=== PATIENT | female | born 1955 | race Hispanic/Latino ===

== ENCOUNTER 2017-07-25 16:16 | Outpatient (CLI) | payer OTHER | END 2017-07-25 16:17 | disposition home or self-care (01) | LOC: LABBT 16:16 | PROVIDERS: ATTEND Orthopaedic Surgery | DX: Z01.812 Encounter for preprocedural laboratory examination (principal); Z01.810 Encounter for preprocedural cardiovascular examination; S83.206A Unspecified tear of unspecified meniscus, current injury, right knee, initial encounter | CPT/HCPCS: 93005; 93010 ==

== ENCOUNTER 2017-07-27 07:31 | Day surgery (SDC) | payer OTHER ==
[2017-07-25 16:21] VITALS: BMI 27.4
[2017-07-27] MEDS ORDERED: Diprivan 20 ML ONE (07:45)
[2017-07-27] MEDS ORDERED: CEFAZOLIN/Water 2 GM/20 ML SYRINGE ONE (07:49)
[2017-07-27] MEDS ORDERED: Midazolam HCl 2 mg/2 ml Vial ONE (08:40)
[2017-07-27] MEDS ORDERED: Bupivacaine HCl 0.5%/Epinephrine 1:200,000/PF 30 ml Vial ONE (09:36)
--- NOTE | 2017-07-27 12:21 | OP ---
DATE OF PROCEDURE: 07/27/2017 PREOPERATIVE DIAGNOSIS: Right knee lateral meniscal tear. POSTOPERATIVE DIAGNOSES: 1. Right knee grade 3 and 4 lesion on the medial femoral condyle with a small stable chondral flap. 2. Posterior horn medial meniscus tear. 3. Complex tear of the lateral meniscus involving the entire anterior horn and body and going into t he posterior horn of the lateral meniscus including a large displaced flap fragments and horizontal c leavage component mostly of the anterior horn of the meniscus. ANESTHESIA: She did have general anesthetic. She had a local knee block. DISPOSITION: She did go to recovery room in stable condition. COMPLICATIONS: There were no complications. PROCEDURES: 1. Knee arthroscopy, partial medial and lateral meniscectomies. 2. Debridement of unstable cartilage flap, medial femoral condyle. INDICATIONS: Linda is a lady who works over here at [employer] and 62 years old. She comes in [facility] plaining of occasional pain, locking and swelling in the knee. We tried nonoperative treatment inclu ding an injection and this has failed to give her relief, she wished for. DESCRIPTION OF PROCEDURE: After all appropriate consent forms were explained and signed, she was ubaldo en to the operating room and at this time was given general anesthetic. Once anesthesia was appropri ate, the tourniquet was placed on the right thigh and leg was then placed in an arthroscopic leg hold er. It was then prepped and draped in standard surgical fashion. Limb was exsanguinated, tourniquet taken up to 250 mmHg. An inferolateral portal was established and the scope was placed into the kne e joint. A needle localization technique was then used to make a medial working portal. Diagnostic arthroscopy commenced in the notch, the ACL and PCL probed and found to be intact. There was a large displaced fragment locked into the notch next to the ACL. This was coming off the anterior horn. W e first turned our attention to the medial compartment. There was a 3-4 mm wide by almost 2 cm long injury to the medial femoral condyle with some unstable chondral flaps, this was taken back to a stab le base. Essentially, there was a grade 4 lesion, but perhaps maybe a little bit of [place] cartilage still left on this. Other than this, this was left alone. Medial compartment was then evaluated. Tibia was in good condition. There was a posterior horn tear of the medial meniscus and a partial me niscectomy was performed using meniscal biter and shaver, leaving as much meniscus as possible. The lateral compartment was then evaluated, this locked piece of a flap tissue was removed using a biter and shaver. They were able to fully evaluate the lateral compartment and a very complex tear. The e ntire anterior horn of the lateral meniscus as split into 2 levels and both of these had tears and es sentially making the anterior horn nonfunctional and not irreparable either. Therefore, a slowly bit ing and shaving, we removed the unstable flaps and I left as much remaining meniscus as possible. Ho wever, this is essentially removing nearly the entire anterior horn of the lateral meniscus, a 50% po rtion of the body and maybe 30% going into the posterior horn of the lateral meniscus. Once all thes e flaps and loose tissue had been removed, there was a stable meniscal cartilage left upon probing an d no longer locked into the knee joint. The knee could then be taken through full range of motion. Gutters were swept through and no loose bodies noted in the patellofemoral joint overall was in good condition. At this time, the scope was removed, the knee was drained, and portals were closed with s imple nylon stitch. Bulky sterile dressing was applied and the tourniquet let down. Toes pinked up nicely. The patient was then awakened. She was taken to the recovery room in stable condition. All counts were correct at the end of the case. She did receive preoperative IV antibiotics.
== END 2017-07-27 15:01 | disposition home or self-care (01) ==
LOC: SDC 07:31
PROVIDERS: ATTEND Orthopaedic Surgery
PROC: 0SBC4ZZ Excision of Right Knee Joint, Percutaneous Endoscopic Approach (ICD-10-PCS; principal; 2017-07-27)
DX: S83.271A Complex tear of lateral meniscus, current injury, right knee, initial encounter (principal); S83.241A Other tear of medial meniscus, current injury, right knee, initial encounter
CPT/HCPCS: G8978-GP-CI; G8979-GP-CI; G8980-GP-CI; J0670; J2250; J2704

== ENCOUNTER 2018-06-24 15:57 | Outpatient (CLI) | payer OTHER | END 2018-06-24 15:58 | disposition home or self-care (01) | LOC: BICMAMMO 15:57 | PROVIDERS: ATTEND Family Medicine | DX: Z12.31 Encounter for screening mammogram for malignant neoplasm of breast (principal) | CPT/HCPCS: 77063; 77067 ==

== ENCOUNTER 2020-09-14 15:16 | Outpatient (CLI) | payer OTHER | END 2020-09-14 15:17 | disposition home or self-care (01) | LOC: BICMAMMO 15:16 | PROVIDERS: ATTEND Student in an Organized Health Care Education/Training Program | DX: Z12.31 Encounter for screening mammogram for malignant neoplasm of breast (principal) | CPT/HCPCS: 77063; 77067 ==

== ENCOUNTER 2021-12-14 14:24 | Outpatient (CLI) | payer BC | END 2021-12-14 14:25 | disposition home or self-care (01) | LOC: BICMAMMO 14:24 | PROVIDERS: ATTEND Student in an Organized Health Care Education/Training Program | DX: Z12.31 Encounter for screening mammogram for malignant neoplasm of breast (principal) | CPT/HCPCS: 77063; 77067 ==

== ENCOUNTER 2022-06-09 19:00 | Outpatient (CLI) | payer BC | END 2022-06-09 19:01 | disposition home or self-care (01) | LOC: SLEEPLAB 19:00 | PROVIDERS: ATTEND Student in an Organized Health Care Education/Training Program | DX: G47.9 Sleep disorder, unspecified (principal); R06.81 Apnea, not elsewhere classified; R53.83 Other fatigue; F32.A Depression, unspecified; R06.83 Snoring; G47.61 Periodic limb movement disorder; G47.10 Hypersomnia, unspecified | CPT/HCPCS: 95810 ==

== ENCOUNTER 2023-03-08 07:22 | Outpatient (CLI) | payer BC, MEDICARE | END 2023-03-08 07:23 | disposition home or self-care (01) | LOC: RAD 07:22 | PROVIDERS: ATTEND Internal Medicine Rheumatology | DX: M54.50 Low back pain, unspecified (principal); M54.2 Cervicalgia; M24.522 Contracture, left elbow; M25.50 Pain in unspecified joint; M47.812 Spondylosis without myelopathy or radiculopathy, cervical region; M50.31 Other cervical disc degeneration, high cervical region; M50.321 Other cervical disc degeneration at C4-C5 level; M50.323 Other cervical disc degeneration at C6-C7 level; M47.816 Spondylosis without myelopathy or radiculopathy, lumbar region; M51.36 Other intervertebral disc degeneration, lumbar region; M89.38 Hypertrophy of bone, other site; M19.022 Primary osteoarthritis, left elbow | CPT/HCPCS: 72052; 72110 ==